=== PATIENT | male | born 1960 | race Caucasian/White ===

== ENCOUNTER 2020-09-22 16:36 | Emergency (ER) | payer BC ==
[2020-09-22] MEDS ORDERED: Acetaminophen/oxyCODONE 325-5 MG Tab PO ONE (16:37)
--- NOTE | 2020-09-22 18:11 | CR ---
PROCEDURE INFORMATION: Exam: XR Right Ribs Exam date and time: 09/22/2020 5:44 PM Age: 60 years old Clinical indication: Other: Pain TECHNIQUE: Imaging protocol: XR Right ribs. Views: 2 views. COMPARISON: No relevant prior studies available. FINDINGS: Bones/joints: Possible segmental rib resection posterior 3rd and 4th ribs. Otherwise unremarkable. Soft tissues: Normal. IMPRESSION: No acute findings.
--- NOTE | 2020-09-22 18:12 | CR ---
PROCEDURE INFORMATION: Exam: XR Right Shoulder Exam date and time: 09/22/2020 5:37 PM Age: 60 years old Clinical indication: Other: Pain TECHNIQUE: Imaging protocol: XR Right shoulder. Views: 2 or more views. COMPARISON: No relevant prior studies available. FINDINGS: Bones/joints: Findings consistent with acute rib fractures posterior portion of the 3rd and 4th ribs. Otherwise unremarkable. Soft tissues: Normal. IMPRESSION: Findings consistent with acute rib fractures posterior portion of the 3rd and 4th ribs.
--- NOTE | 2020-09-22 19:11 | EDM.PDOC ---
ED HPI GENERAL MEDICAL PROBLEM - General Chief Complaint: Upper Extremity Injury/Pain Stated Complaint: DESK FELL ON SHOULDER / ARM Time Seen by Provider: 09/22/20 19:06 Source of Information: Reports: Patient, RN, RN Notes Reviewed History Limitations: Reports: No Limitations - History of Present Illness INITIAL COMMENTS - FREE TEXT/NARRATIVE: Aryan is a 60 y/o male who presents to the ED via personal vehicle with complaints of pain to right upper extremity and right chest. The patient reports earlier this afternoon he was assisting with building a deck when the portion he was lifting collapsed onto him. He denies loss of consciousness during the event, did not strike his head, and does not take blood thinners. He denies loss of sensory of motor function to his right upper extremity. He denies open wounds to his extremities or trunk. The patient does report pain to his right thorax with moderate inspiration. He has not taken any analgesics for this injury. Right Upper Arm Pain Score (Numeric/FACES): 8 Right Chest Pain Score (Numeric/FACES): 8 - Related Data Allergies Allergy/AdvReac Type Severity Reaction Status Date / Time Penicillins Allergy Cannot Verified 09/22/20 17:31 Remember Home Meds: Home Meds hydroCHLOROthiazide [Hydrochlorothiazide] 25 mg PO DAILY 09/22/20 [History] lisinopriL [Lisinopril] 40 mg PO DAILY 09/22/20 [History] Past Medical History Cardiovascular History: Reports: High Cholesterol, Hypertension Social & Family History - Family History Family Medical History: No Pertinent Family History - Tobacco Use Tobacco Use Status *Q: Never Tobacco User - Caffeine Use Caffeine Use: Reports: None - Recreational Drug Use Recreational Drug Use: No Review of Systems - Review of Systems Review Of Systems: Comprehensive ROS is negative, except as noted in HPI. ED EXAM, GENERAL - Physical Exam Exam: See Below Exam Limited By: No Limitations General Appearance: Alert, No Apparent Distress Eye Exam: Bilateral Eye: EOMI, Normal Inspection, PERRL (3mm) Throat/Mouth: Normal Inspection, Normal Oropharynx, Normal Voice, No Airway Compromise Head: Atraumatic, Normocephalic Neck: Normal Inspection, Supple, Non-Tender, Full Range of Motion Respiratory/Chest: No Respiratory Distress, Lungs Clear, Normal Breath Sounds, No Accessory Muscle Use, Splinting. No: Chest Non-Tender (Right chest and right board mixer tender with inspiration), Crackles, Rales, Rhonchi, Wheezing, Stridor, Pleural Rub, Retractions Cardiovascular: Normal Peripheral Pulses, Regular Rate, Rhythm, No Edema, No Gallop, No JVD, No Murmur, No Rub Peripheral Pulses: 2+: Radial (L), Radial (R) GI/Abdominal: Normal Bowel Sounds, Soft, Non-Tender, No Distention, No Abnormal Bruit, No Mass, Pelvis Stable (Male) Exam: Deferred Rectal (Males) Exam: Deferred Back Exam: Normal Inspection, Full Range of Motion. No: Muscle Spasm, Paraspinal Tenderness, Vertebral Tenderness Extremities: Normal Inspection, Normal Range of Motion, No Pedal Edema, Arm Pain (To right upper arm), Limited Range of Motion (To right shoulder). No: Joint Swelling, Increased Warmth, Mottled, Pallor, Redness Neurological: Alert, Oriented, CN II-XII Intact, Normal Cognition, Normal Gait, No Motor/Sensory Deficits Psychiatric: Normal Affect, Normal Mood Skin Exam: Warm, Dry, Intact, Normal Color, No Rash. No: Ecchymosis, Erythema, Jaundice, Mottled, Pallor, Petechiae Course - Vital Signs Last Recorded V/S: Last Vital Signs Temp 97.1 F 09/22/20 18:04 Pulse 79 09/22/20 19:41 Resp 20 09/22/20 19:41 BP 148/69 H 09/22/20 18:04 Pulse Ox 97 09/22/20 19:41 - Orders/Labs/Meds Meds: Medications Discontinued Medications Generic Name Dose Route Start Last Admin Trade Name Izzy PRN Reason Stop Dose Admin Oxycodone/Acetaminophen Confirm 09/22/20 19:30 Acetaminophen/Oxycodone 325-5 Mg Tab Administered 09/22/20 19:31 Dose 4 tab .ROUTE .STK-MED ONE - Radiology Interpretation Free Text/Narrative:: [facility] Final Radiology Report with Addendum Call: [phone] assistance Online chat: [email or web address] Name: ARYAN WAITE Age: 60Years M Date: 09/22/2020 SSN: -- : 1960 Study: CR RIBS 2V WO CHEST RT Requesting Physician: SAMANTA BRUNSON Images: 2 Addl Studies: Provided Clinical History: PAIN Contrast: Contrast Medium: Contrast Amount: Contrast Method: Page 1 of 2 Addendum created by Hong Guillermo MD on 09/22/2020 6:12 PM Central Time ([place] & [place]): Re-evaluation of the examination suggests that the discontinuity in the posterior aspect of the 3rd and 4th ribs are likely acute to subacute. This report has been amended as of 09/22/2020 at 6:[address] Please replace the original report with this version. Initial Report created on 09/22/2020 6:11 PM Central Time ([place] & [place]): PROCEDURE INFORMATION: Exam: XR Right Ribs Exam date and time: 09/22/2020 5:44 PM Age: 60 years old Clinical indication: Other: Pain TECHNIQUE: Imaging protocol: XR Right ribs. Views: 2 views. COMPARISON: No relevant prior studies available. FINDINGS: Bones/joints: Possible segmental rib resection posterior 3rd and 4th ribs. Otherwise unremarkable. Soft tissues: Normal. IMPRESSION: No acute findings. Thank you for allowing us to participate in the care of your patient. Dictated and Authenticated by: Hong Guillermo MD 09/22/2020 6:11 PM Central Time ( & [place]) [facility] Final Radiology Report Call: [phone] assistance Online chat: [email or web address] Name: ARYAN WAITE Age: 60Years M Date: 09/22/2020 SSN: -- : 1960 Study: CR SHOULDER COMP RT Requesting Physician: SAMANTA BRUNSON Images: 3 Addl Studies: Provided Clinical History: PAIN Contrast: Contrast Medium: Contrast Amount: Contrast Method: CONFIDENTIALITY STATEMENT This report is intended only for use by the referring physician, and only in accordance with law. If you received this in error, call [phone]. Page 1 of 1 PROCEDURE INFORMATION: Exam: XR Right Shoulder Exam date and time: 09/22/2020 5:37 PM Age: 60 years old Clinical indication: Other: Pain TECHNIQUE: Imaging protocol: XR Right shoulder. Views: 2 or more views. COMPARISON: No relevant prior studies available. FINDINGS: Bones/joints: Findings consistent with acute rib fractures posterior portion of the 3rd and 4th ribs. Otherwise unremarkable. Soft tissues: Normal. IMPRESSION: Findings consistent with acute rib fractures posterior portion of the 3rd and 4th ribs. Thank you for allowing us to participate in the care of your patient. Dictated and Authenticated by: Hong Guillermo MD 09/22/2020 6:12 PM Central Time ([place] & [place]) - Re-Assessments/Exams Free Text/Narrative Re-Assessment/Exam: 09/23/20 Care of patient assumed by specification writer at 1900; report received from Samanta Brunson PA-C. Xray of ribs reveals fracture of 3rd and 4th posterior ribs. Shoulder xray unremarkable for acute processes. Will treat acute pain with Percocet and IS. Supportive cares reviewed with patient, including appropriate use of IS to prevent atelectasis/pneumonia d/t splinting. Red flag signs and symptoms which would warrant reevaluation reviewed. Patient verbalized understanding and agreement with the plan of care. Departure - Departure Time of Disposition: 19:06 Disposition: Home, Self-Care 01 Condition: Good Clinical Impression: Right rib fracture Qualifiers: Encounter type: initial encounter Rib fracture type: multiple ribs Fracture type: closed Qualified Code(s): S22.41XA - Multiple fractures of ribs, right side, initial encounter for closed fracture Blunt trauma to chest Qualifiers: Encounter type: initial encounter Qualified Code(s): S29.8XXA - Other specified injuries of thorax, initial encounter - Discharge Information *PRESCRIPTION DRUG MONITORING PROGRAM REVIEWED*: Not Applicable *COPY OF PRESCRIPTION DRUG MONITORING REPORT IN PATIENT TRAY: Not Applicable Instructions: Rib Fracture, [id number] Forms: ED Department Discharge Additional Instructions: Rx: Percocet 1.) Follow up with primary care provider in 5-7 days regarding today's visit, or sooner should symptoms worsen. 2.) Use your incentive spirometer 10x every hour, while awake to strengthen lungs. 3.) You may take an extra acetaminophen (Tylenol) 325mg with your Percocet. You may take ibuprofen (Advil/Motrin) 400mg every six hours, for breakthrough pain. Sepsis Event Note (ED) - Evaluation Sepsis Screening Result: No Definite Risk - Focused Exam Vital Signs: Vital Signs Temp Pulse Resp BP Pulse Ox 09/22/20 19:41 79 20 97 09/22/20 18:04 97.1 F 77 16 148/69 H 99
[2020-09-22] MEDS ORDERED: Acetaminophen/oxyCODONE 325-5 MG Tab ONE (19:30)
== END 2020-09-22 19:41 | disposition home or self-care (01) ==
LOC: DL.ED 16:36
DX: S22.41XA Multiple fractures of ribs, right side, initial encounter for closed fracture (principal); I10 Essential (primary) hypertension; Z88.0 Allergy status to penicillin; W20.8XXA Other cause of strike by thrown, projected or falling object, initial encounter
CPT/HCPCS: 71100; 73030; 99283; A9270; 99284